=== PATIENT | male | born 1995 | race Asian ===

== ENCOUNTER 2017-09-18 14:52 | Emergency (ER) | payer OTHER ==
[2017-09-18 14:57] VITALS: BP 153/100; PULSE 123; TEMP 36.5; O2SAT 98
[2017-09-18] MEDS ORDERED: OXYCODONE HCL IR 5 MG TAB (IMMEDIATE RELEASE) PO STA (15:06)
[2017-09-18] MEDS ORDERED: XYLOCAINE 1%/SOD BICARB 20 ML VIAL INFIL ONE (15:15)
--- NOTE | 2017-09-18 16:08 | EMERGENCY ROOM VISIT NOTE ---
ED Visit Note First contact with patient: 15:02 CHIEF COMPLAINT: Infected cyst on back HISTORY OF PRESENT ILLNESS: This patient has had a painful swelling at the top of the gluteal crease of the buttocks for 10 days. There has been no injury to the area and no drainage. The patient denies fever, chills, or loss of appetite. The pain is steady, moderately severe, and hurts worse when sitting or bending over. The patient states he has never had a cyst in this area before but did have one on his chest. REVIEW OF SYSTEMS: 6 system review was performed and was negative unless stated otherwise in history of present illness. PMH: The patient is healthy; Dm SOCIAL HISTORY: Patient is a [employer] PHYSICAL EXAM: Vital Signs: Were reviewed Reviewed Nurse's notes. GEN.: 21-year -old male appears uncomfortable secondary to pain. MENTAL Status: Alert and oriented 3. BUTTOCKS: There is a fluctuant, tender swelling at the top of the gluteal crease. There is no pointing. No visible erythema noted. EMERGENCY DEPARTMENT COURSE: The patient was given OxyIR 2 tablets by mouth for pain. After saline and Betadine cleansing and lidocaine anesthesia, the abscess was incised with a number 11 scalpel blade. A large amount of foul- smelling purulent material drained and more was expressed by pressure. The abscess cavity was then swabbed out with cotton-tipped applicator swabs that had been dipped in Betadine. 1/2 inch iodoform gauze that had been dipped in Betadine was used as a drain and a dressing was applied. Culture was obtained. The patient then informed me that he has not been on any of his insulin for some time. He does not check his blood sugars. Bedside blood sugar was 291. The patient was instructed that he will need to make an appointment with [facility] for management of his diabetes. The patient verbalized understanding. DIAGNOSIS: Pilonidal cyst-abscess DISCHARGE INSTRUCTIONS AND TREATMENT: Take Keflex as prescribed. Change dressing as it becomes soiled. Do not remove the packing. Return to the ER in 36-48 hours for packing removal. Ibuprofen 600 mg every 6 hours with food for pain. Take [place] as needed for pain. Do not drive while taking the [place]. Follow-up with [facility] as soon as possible for management of your diabetes. Vital Signs Date Time Temp Pulse Resp B/P (MAP) Pulse Ox O2 Delivery O2 Flow Rate FiO2 09/18/17 14:57 36.5 123 18 153/100 98 Room Air Laboratory Results Test 09/18/17 15:40 Bedside Glucose 291 mg/dl (70-99) Medications Administered Medications (Trade) Dose Ordered Sig/Bear Route Start Time Stop Time Status Last Admin Dose Admin Oxycodone HCl (Roxicodone Immediate Rel Tab) 10 mg NOW STAT PO 09/18/17 15:06 09/18/17 15:07 DC 09/18/17 15:15 10 MG Departure Information Referrals Sadia Plummer M.D. (PCP) Patient Instructions My [facility]
[2017-09-18] MEDS ORDERED: CEPH500C2 PO (16:12)
[2017-09-18] MEDS ORDERED: HYDR-5688 PO (16:12)
== END 2017-09-18 16:25 | disposition home or self-care (01) ==
LOC: C.EDB 14:54 → C.EDD 16:25
DX: L05.01 Pilonidal cyst with abscess (principal); E11.9 Type 2 diabetes mellitus without complications

== ENCOUNTER 2017-09-21 18:29 | Emergency (ER) | payer OTHER ==
[~2017-09-21] VITALS: Ht 175.3 cm; Wt 82.2 kg
[~2017-09-21 18:29] MED LIST: CEPH500C2 PO; HYDR-5688 PO
[2017-09-21 18:30] VITALS: TEMP 36.7; Ht 175.3 cm; Wt 82.2 kg
[2017-09-21 18:53] VITALS: BP 152/91; PULSE 88; O2SAT 94
--- NOTE | 2017-09-22 15:48 | EMERGENCY ROOM VISIT NOTE ---
ED Visit Note First contact with patient: 18:33 CHIEF COMPLAINT: Abscess recheck. HISTORY OF PRESENT ILLNESS: Mr. Nesbitt is a 21-year-old male who ambulates into the ED requesting recheck of an abscess he had an I&D procedure performed formed in this emergency department 3 days ago. He reports since being discharged from the ED he has been having improving pain has not seen any increase in swelling this or redness or drainage from the wound. He feels the wound is healing well. PHYSICAL EXAM: Vital Signs: Date Time Temp Pulse Resp B/P (MAP) Pulse Ox O2 Delivery O2 Flow Rate FiO2 09/21/17 18:53 88 15 152/91 94 09/21/17 18:30 36.7 107 17 143/90 93 Room Air General: 21-year-old male in no acute distress, nontoxic appearing, afebrile and hemodynamically stable. Neurological: Awake, alert and oriented 3. Answering questions appropriately and following commands. Buttocks: Clean dry and intact wound without signs of infection (erythema, swelling, tenderness, purulent drainage). ED COURSE: Patient is assessed as noted above. Patient's medication list was reviewed. The packing was removed from patient's wound and a small amount of loose purulent material were additionally drained. The bandage was recovered but not repacked. Patient was educated about today's findings and instructed on his treatment plan ; he verbalizes understanding and agreement with this plan. DISPOSITION: Patient discharged home in stable condition. CLINICAL IMPRESSION: Abscess recheck. Packing removal. PLAN: Continue to use antibiotics and pain medications as prescribed. Follow-up at [facility] for recheck at the end of the course of your antibiotics. Continue to watch the area for worsening signs of infection if they would worsen return to the ED for recheck.
== END 2017-09-21 18:54 | disposition home or self-care (01) ==
LOC: C.EDB 18:30 → C.EDD 18:54
DX: L02.31 Cutaneous abscess of buttock (principal)